=== PATIENT | male | born 1960 | race Caucasian/White ===

== ENCOUNTER 2021-08-20 08:33 | Emergency (ER) | payer BC, SELFPAY ==
--- NOTE | ~2021-08-20 | XR_ITS ---
EXAMINATION: XR hand LT min 3V DATE: 08/20/2021 09:24 INDICATION: Chain saw laceration of the third and fourth digits of the left hand TECHNIQUE: Posteroanterior, oblique and lateral views of the left hand were obtained. COMPARISON: None. FINDINGS: Bone alignment is normal. No fracture. Polyarticular osteoarthritis, moderate severity at the first i nterphalangeal and at the fourth proximal and second fifth distal interphalangeal joints and mild at the distal radioulnar, radiocarpal, midcarpal, triscaphe, first carpometacarpal, third and fourth met acarpophalangeal and remaining interphalangeal joints. Irregularity along the skin surface at the uln ar aspect of the fourth middle phalanx likely representing the site of a reported laceration. No radi opaque foreign bodies identified. IMPRESSION: 1. 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 No radiopaque foreign bodies or ac kenna osseous abnormality. Reviewed, dictated and finalized at location B. IMPRESSION: 1. 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 No radiopaqu e foreign bodies or acute osseous abnormality.
[2021-08-20 08:37] VITALS: BP 181/135; PULSE 96; RESP 18; TEMP 36.3; O2SAT 99
[2021-08-20] MEDS: TETANUS,DIPHTHERIA,AC PERTUSSIS ADULT (0.5 ML) BOOSTRIX IM (09:16)
--- NOTE | 2021-08-20 10:00 | ED.GENADULT ---
HPI - General Adult General Chief complaint: Extremity Injury, Upper Stated complaint: finger injury Time Seen by Provider: 08/20/21 08:53 Source: patient Mode of arrival: ambulatory Limitations: no limitations History of Present Illness HPI narrative: Pt is a 61 y/o male, presents to ED via POV with left 3rd and 4th finger lacerations after injury he sustained last HS around 1700 while using a chainsaw. He cleaned the wound, wrapped it and cooked dinner last HS. Today when he removed his dressing, the wound began to bleed again prompting his visit. He denies FB risk or ROM deficit. He is uncertain when his last tetanus was received. He is right hand dominant. Onset (ago): hour(s) (12+) Location: upper extremity Radiation: non-radiation Severity: mild Severity scale (1-10): 2 Quality: burning Pain Consistency: intermittent Relieving factors: none Exacerbating factors: none Associated symptoms: denies other symptoms Treatments prior to arrival: none Related Data Allergies Allergy/AdvReac Type Severity Reaction Status Date / Time SULFA Allergy Rash Uncoded 08/20/21 08:57 Review of Systems Review of Systems: All systems reviewed & are unremarkable except as noted in HPI and below Exam Const: General: no acute distress and alert Nutritional Appearance: well nourished and obese Orientation/consciousness: patient oriented x3 Limitations: no limitations HENMT: Head: normal to inspection Eyes: Pupils: Equal, round and reactive pupils present Neck: Neck: normal visual inspection Chest: Chest palpation & inspection: normal inspection of the chest Resp: Effort & Inspection: normal respiratory effort Cardio: Rate: regular rate Skin: General skin exam: normal color Other: pt has linear lacerations of the left 3rd and 4th fingers, medial aspects (ulnar side) of both digits, along the middle phalanx. DIP, PIP and MCP ROM is intact. Distal PMS inact. No nail plate injury noted. No active bleeding from either wound Neuro: General: patient oriented x3 and moves all extremities Extrem: Other: see skin exam above Psych: Mental Status: mental status grossly normal Thought content: Yes Normal thought content present Course Course Emergency Course: imaging unremarkable for fracture or FB. Wound is irrigated and steri strips are applied to the left 4th finger laceration as the flaps are already approximated given the age of the wound however, the flap on the left 4th finger was injured and pulled from the wound margin slightly when he removed his bandage this morning. This should allow for better healing. Will treat empirically with Cephalexin, FU with PCP in 2-3 days for wound check, home cleaning instructions provided. Vital Signs Vital signs: Vital Signs Temperature 36.3 C L 08/20/21 08:37 Pulse Rate 96 08/20/21 08:37 Respiratory Rate 18 08/20/21 08:37 Blood Pressure 181/135 H 08/20/21 08:37 Pulse Oximetry 99 08/20/21 08:37 Temperature 36.3 C L 08/20/21 08:37 Pulse Rate 96 08/20/21 08:37 Respiratory Rate 18 08/20/21 08:37 Blood Pressure 181/135 H 08/20/21 08:37 Pulse Oximetry 99 08/20/21 08:37 Procedures Laceration Laceration 1: Date: 08/20/21 Time: 10:19 Site: hand Side (If applicable): left Size (cm): 3 Description: linear Depth: simple, single layer Local Anesthetic: none Pre-repair: irrigated ====== Skin Level ====== Skin layer closed with: steri strips ====== Subcutaneous Layer ====== ====== Muscle Layer ====== ====== Tendon Layer ====== Dressing: gauze, coban Medical Decision Making Differential Diagnosis Differential Diagnosis: laceration, FB, fracture Medical Records Medical records reviewed: Yes I reviewed the external patient's medical records. Vital Signs Vital Signs: Vital Signs Temperature 36.3 C L 08/20/21 08:37 Pulse Rate 96 08/20/21 08:37 Respiratory Rate
[2021-08-20 10:41] VITALS: BP 156/108; PULSE 72; RESP 14; O2SAT 98
== END 2021-08-20 10:36 | disposition home or self-care (01) ==
PROVIDERS: Emergency Provider Nurse Practitioner Family; PCP Family Medicine Adolescent Medicine
DX: S61.213A Laceration without foreign body of left middle finger without damage to nail, initial encounter (principal); S61.215A Laceration without foreign body of left ring finger without damage to nail, initial encounter; I10 Essential (primary) hypertension; Z23 Encounter for immunization; T46.5X6A Underdosing of other antihypertensive drugs, initial encounter; Z91.128 Patient's intentional underdosing of medication regimen for other reason; W29.3XXA Contact with powered garden and outdoor hand tools and machinery, initial encounter
CPT/HCPCS: 73130; 90471; 90715; 99283

== ENCOUNTER 2022-07-06 01:16 | Day surgery (SDC) | payer BC, SELFPAY ==
[2022-06-26 10:05] VITALS: BMI 32.5
--- NOTE | 2022-07-03 13:20 | P.HP_ITS ---
History of Present Illness History of Present Illness Consent: Risks, benefits, and alternatives have been discussed and questions answered. Patient agrees to proceed with procedure. Chief complaint: neoplasm screening Narrative: Jareth Gonsales is a 62 year old male referred for colon cancer screening. Review of Systems Review of Systems: All systems reviewed & are unremarkable except as noted in HPI and below PMFSH Family History Family History Father Acute myocardial infarction Cerebrovascular accident Liver cancer Mother Hypercholesterolemia Other Acute myocardial infarction Social History Social History Smoking status: Former smoker Tobacco type: cigarettes Alcohol intake: current Alcohol use details: rare use Substance use: never Substance use type: does not use Living arrangements: with family Spiritual care concerns: No Meds Home Medications and Allergies Home Medications Medication Instructions Recorded Confirmed Type lisinopril 40 mg tablet 40 mg PO DAILY #90 tabs 06/08/22 07/06/22 Rx Allergies Allergy/AdvReac Type Severity Reaction Status Date / Time SULFA Allergy Rash Uncoded 07/06/22 08:41 lescol AdvReac Intermediate Muscle Pain Uncoded 07/06/22 08:41 Exam Const: General: alert Orientation/consciousness: patient oriented x3 Resp: Auscultation: clear to auscultation bilaterally Cardio: Rhythm: regular rhythm GI: GI Palp: Yes Soft to palpation and No Tenderness to palpation present (GI) Neuro: General: patient oriented x3 Assessment and Plan Assessment and plan (1) Colon cancer screening: Code(s): Z12.11 - Encounter for screening for malignant neoplasm of colon Status: Acute Assessment and Plan: Colonoscopy with possible biopsy or polypectomy or cautery or injection of s ubstances.
[2022-07-06 08:42] VITALS: BP 147/90; PULSE 101; RESP 20; TEMP 36.3; O2SAT 97
[2022-07-06] MEDS: LACTATED RINGERS 1,000 ML 150 ML IV CONT (08:52)
--- NOTE | 2022-07-06 09:11 | P.PNAN_ITS ---
Anes - Initial Pre Proc Eval Procedure: Operation Date: 07/06/22 10:00 Proposed Procedures p Screening Colonoscopy - Salvador Sorenson MD Date/Time: 07/06/22 09:11 Surgeon: Salvador Sorenson MD Pre Op Diagnosis: neoplasm screening Patient Data Age: 62 Gender: M Height: 1.83 m Weight: 107.7 kg Last Vital Signs Temp 36.3 C L 07/06/22 08:42 Pulse 101 H 07/06/22 08:42 Resp 20 07/06/22 08:42 BP 147/90 H 07/06/22 08:42 Pulse Ox 97 07/06/22 08:42 O2 Del Method Room Air 07/06/22 08:42 Allergies Allergy/AdvReac Type Severity Reaction Status Date / Time SULFA Allergy Rash Uncoded 07/06/22 08:41 lescol AdvReac Intermediate Muscle Pain Uncoded 07/06/22 08:41 Home Medications Medication Instructions Recorded Confirmed Type lisinopril 40 mg tablet 40 mg PO DAILY #90 tabs 06/08/22 07/06/22 Rx Patient hx anesthesia problems: none Family hx anesthesia problems: none Results Review: All pre-operative results and documents have been reviewed as part of the pre- operative evaluation. FORMERLY [facility], [facility] Family History Family History (Updated 06/05/22 @ 06:28 by Isac Love MD) Father Acute myocardial infarction Cerebrovascular accident Liver cancer Mother Hypercholesterolemia Other Acute myocardial infarction Social History Social History Smoking status: Former smoker Tobacco type: cigarettes Alcohol intake: current Alcohol use details: rare use Substance use: never Substance use type: does not use Living arrangements: with family Spiritual care concerns: No Anes - Eval Final PreProcedure Day of Procedure 07/06/22 09:11 Patient weight: obese Heart: regular rate and rhythm Lungs: clear to auscultation Airway: Mallampati scale class II Neurological: alert and oriented Last oral intake: >/= 8 hours ASA classification: II Emergent: no Anesthetic plan: proceed Anesthesia type and monitoring: general GIVS and standard monitoring Results Review: All pre-operative results and documents have been reviewed as part of the pre- operative evaluation. Informed Consent: The patient's anesthetic plan and its attendant risks and benefits were discussed with the patient/family/POA. Questions were solicited and answers provided to the satisfaction of the patient/family/POA.
[2022-07-06 10:13] VITALS: BP 111/76; PULSE 77; RESP 19; O2SAT 97
[2022-07-06 10:23] VITALS: BP 131/86; PULSE 76; RESP 20; O2SAT 97
[2022-07-06 10:33] VITALS: BP 134/92; PULSE 81; RESP 18; O2SAT 98
== END 2022-07-06 10:40 | disposition home or self-care (01) ==
PROVIDERS: PCP Family Medicine Adolescent Medicine; Visit Provider Internal Medicine Gastroenterology
PROC: 0DJD8ZZ Inspection of Lower Intestinal Tract, Via Natural or Artificial Opening Endoscopic (ICD-10-PCS; CPT 45378; principal; 2022-07-06 10:00)
DX: Z12.11 Encounter for screening for malignant neoplasm of colon (principal); Z87.891 Personal history of nicotine dependence
CPT/HCPCS: 45378; J2704; J7120

== ENCOUNTER 2024-09-05 09:08 | Outpatient (CLI) | payer BC, SELFPAY ==
--- NOTE | ~2024-09-05 | XR_ITS ---
AP and lateral views of the right hip Clinical history: Pain Findings: No acute fracture or dislocation is seen. Osseous alignment is anatomic. Right hip joint sp teri is intact. Soft tissues are unremarkable. Impression: No significant abnormality is seen. Reviewed, dictated and finalized at location . Impression: No significant abnormality is seen.
== END 2024-09-05 09:09 | disposition home or self-care (01) ==
LOC: MICIMG 09:09
PROVIDERS: PCP Family Medicine Adolescent Medicine; Visit Provider Family Medicine Adolescent Medicine
DX: M25.551 Pain in right hip (principal)
CPT/HCPCS: 73502